=== PATIENT | female | born 1970 | race Two or more races ===

== ENCOUNTER 2021-08-19 08:39 | Emergency (ER) | payer OTHER ==
[~2021-08-19] VITALS: Ht 170.2 cm; Wt 67.6 kg
[2021-08-19] MEDS ORDERED: MACRODANTIN100 M1 PO (12:55)
[2021-08-19] MEDS ORDERED: PYRIDIUM DS200 MG PO (12:55)
== END 2021-08-19 13:06 ==
LOC: ER 08:39
DX: N39.0 Urinary tract infection, site not specified (principal); Z85.038 Personal history of other malignant neoplasm of large intestine